=== PATIENT | male | born 1930 | race Caucasian/White ===

== ENCOUNTER → 2020-03-06 | Outpatient (CLI) | payer SELFPAY ==
[~2020-03-06] MED LIST: ALLO100 PO; Keflex500 MG PO; LEVFLO500 PO; LISI10 PO; Lopressor 25 mg25 MG PO; METO50 PO; OMEP20ER PO; POTCHL20ER PO; WARF5 PO; ZOCOR20 MG PO
[2020-03-06 18:25] LABS: International Normalized Ratio 2.91; Prothrombin Time Results 29.3 Sec (9.7-11.5)
== END | disposition home or self-care (01) ==
LOC: LAB SHORT 15:35 → LAB 15:35
PROVIDERS: Internal Medicine
DX: R79.1 Abnormal coagulation profile (principal)
CPT/HCPCS: 85610